=== PATIENT | female | born 1990 | race Two or more races ===

== ENCOUNTER 2022-12-21 15:47 | Emergency (ER) | payer OTHER ==
[~2022-12-21] VITALS: Ht 154.9 cm; Wt 47.2 kg
[2022-12-21] MEDS ORDERED: PRENATAL + DHA1 EAC1 (16:27)
[2022-12-21 17:21] LABS: HEMOGLOBIN 12.7 g/dL (12.0-15.00); MEAN CELL VOLUME 82.4 fL (80.00-100.00); MEAN CORPUSCULAR HEMOGLOBIN 26.8 pg (27.00-32.0); MEAN CORPUSCULAR HGB CONC 32.5 g/dl (32.0-36.0); PLATELET COUNT 350 K/uL (150-450); RED BLOOD COUNT 4.73 M/uL (4.00-6.00); RED CELL DISTRIBUTION WIDTH 13.8 % (11.5-14.5)
[2022-12-21 17:42] LABS: URINE APPEARANCE Turbid; URINE BILIRRUBIN Negative (NEGATIVE); URINE COLOR Yellow; URINE GLUCOSE Negative (NEGATIVE); URINE LEUKOCYTE Moderate; URINE NITRATE Negative; URINE PROTEIN Negative (NEGATIVE)
[2022-12-21 17:43] LABS: URINE BACTERIA 2529.8 uL (0.0-1933); URINE EPITHELIAL CELLS 28.9 uL (0.0-38.8); URINE RBC 31.9 uL (0.0-20.8); URINE WBC 497.4 uL (0.0-23.2)
[2022-12-21 17:54] LABS: URINE BLOOD TRACES
[2022-12-21 18:02] LABS: CALCIUM 9.5 mg/dL (8.5-10.1); CREATININE SERUM 0.64 mg/dL (0.55-1.02); GFR 107.54; POTASSIUM 3.13 mEq/L (3.5-5.1)
== END 2022-12-21 21:00 | disposition home or self-care (01) ==
LOC: ER 15:47
PROVIDERS: Emergency Medicine
DX: R11.10 Vomiting, unspecified (principal); Z33.1 Pregnant state, incidental

== ENCOUNTER 2023-01-17 14:23 | Outpatient (CLI) | payer OTHER ==
[~2023-01-17 14:23] MED LIST: PRENATAL + DHA1 EAC1
== END 2023-01-17 14:27 | disposition home or self-care (01) ==
LOC: PRENATAL 14:23
PROVIDERS: ATTEND Obstetrics & Gynecology Maternal & Fetal Medicine
DX: O36.80X0 Pregnancy with inconclusive fetal viability, not applicable or unspecified (principal); Z36.82 Encounter for antenatal screening for nuchal translucency; Z36.9 Encounter for antenatal screening, unspecified; Z14.8 Genetic carrier of other disease; O99.280 Endocrine, nutritional and metabolic diseases complicating pregnancy, unspecified trimester; O34.10 Maternal care for benign tumor of corpus uteri, unspecified trimester; Z3A.12 12 weeks gestation of pregnancy

== ENCOUNTER 2023-03-03 08:20 | Outpatient (CLI) | payer OTHER | END 2023-03-03 08:22 | disposition home or self-care (01) | LOC: PRENATAL 08:20 | PROVIDERS: ATTEND Obstetrics & Gynecology Maternal & Fetal Medicine | DX: O35.3XX0 Maternal care for (suspected) damage to fetus from viral disease in mother, not applicable or unspecified (principal); O44.00 Complete placenta previa NOS or without hemorrhage, unspecified trimester; O99.280 Endocrine, nutritional and metabolic diseases complicating pregnancy, unspecified trimester; O34.10 Maternal care for benign tumor of corpus uteri, unspecified trimester; Z3A.19 19 weeks gestation of pregnancy ==

== ENCOUNTER 2023-05-09 19:23 | Emergency (ER) | payer OTHER ==
[~2023-05-09] VITALS: Ht 154.9 cm; Wt 64.0 kg
[2023-05-09] MEDS ORDERED: RINGERS SOLUTION,LACTATED 1,000 ML IV ONE (20:30)
[2023-05-09] MEDS ORDERED: METOCLOPRAMIDE HCL 5 MG/ML VIAL IM ONE (20:30)
[2023-05-09 21:23] LABS: PH,URINE 5.5 (5.0-8.0); URINE APPEARANCE Cloudy; URINE BACTERIA 6648.7 uL (0.0-1933); URINE BILIRRUBIN Negative (NEGATIVE); URINE BLOOD Negative; URINE COLOR Yellow; URINE EPITHELIAL CELLS 67.5 uL (0.0-38.8); URINE GLUCOSE Negative (NEGATIVE); URINE LEUKOCYTE Negative; URINE NITRATE Negative; URINE PROTEIN 30 (NEGATIVE); URINE RBC 19.9 uL (0.0-20.8); URINE UROBILINOGEN 0.2 E.U./dl; URINE WBC 98.1 uL (0.0-23.2)
[2023-05-09 21:27] LABS: HEMATOCRIT 38.8 % (36.0-45.00); HEMOGLOBIN 12.7 g/dL (12.0-15.00); MEAN CELL VOLUME 82.1 fL (80.00-100.00); MEAN CORPUSCULAR HEMOGLOBIN 26.8 pg (27.00-32.0); MEAN CORPUSCULAR HGB CONC 32.6 g/dl (32.0-36.0); PLATELET COUNT 242 K/uL (150-450); RED BLOOD COUNT 4.73 M/uL (4.00-6.00); RED CELL DISTRIBUTION WIDTH 13.7 % (11.5-14.5)
[2023-05-09 21:57] LABS: CALCIUM 9.3 mg/dL (8.5-10.1); CREATININE SERUM 0.58 mg/dL (0.55-1.02); GFR 120.47; POTASSIUM 3.33 mEq/L (3.5-5.1)
[2023-05-09] MEDS ORDERED: ONDANSETRON HCL 2 MG/ML VIAL IV ONE (23:30)
[2023-05-09] MEDS ORDERED: FAMOTIDINE/PF 20 MG/2 ML VIAL IV PUSH ONE (23:30)
[2023-05-09 23:55] LABS: HEMATOCRIT 38.2 % (36.0-45.00); HEMOGLOBIN 12.6 g/dL (12.0-15.00); MEAN CELL VOLUME 82.3 fL (80.00-100.00); MEAN CORPUSCULAR HEMOGLOBIN 27.2 pg (27.00-32.0); MEAN CORPUSCULAR HGB CONC 33.1 g/dl (32.0-36.0); PLATELET COUNT 234 K/uL (150-450); RED BLOOD COUNT 4.64 M/uL (4.00-6.00); RED CELL DISTRIBUTION WIDTH 14.1 % (11.5-14.5)
[2023-05-10] MEDS ORDERED: CEFAZOLIN SODIUM 1,000 MG VIAL IV STA (01:10)
== END 2023-05-10 02:33 | disposition home or self-care (01) ==
LOC: ER 19:23
PROVIDERS: General Practice
DX: O99.613 Diseases of the digestive system complicating pregnancy, third trimester (principal); K52.89 Other specified noninfective gastroenteritis and colitis; Z88.6 Allergy status to analgesic agent; Z91.013 Allergy to seafood; K92.89 Other specified diseases of the digestive system; Z3A.29 29 weeks gestation of pregnancy; Z20.822 Contact with and (suspected) exposure to COVID-19

== ENCOUNTER → 2023-05-11 | Emergency (ER) | payer OTHER ==
[~2023-05-11] VITALS: Ht 154.9 cm; Wt 64.0 kg
[~2023-05-11] MED LIST changes: +0.9 % SODIUM CHLORIDE 1,000 ML IV STA; +CEFTRIAXONE SODIUM 1,000 MG VIAL IV ONE; +ONDANSETRON HCL 2 MG/ML VIAL IV ONE; +ONDANSETRON HCL 2 MG/ML VIAL IV STA
[2023-05-11 11:11] LABS: HEMATOCRIT 34.9 % (36.0-45.00); HEMOGLOBIN 11.6 g/dL (12.0-15.00); MEAN CELL VOLUME 81.6 fL (80.00-100.00); MEAN CORPUSCULAR HEMOGLOBIN 27.2 pg (27.00-32.0); MEAN CORPUSCULAR HGB CONC 33.3 g/dl (32.0-36.0); PLATELET COUNT 256 K/uL (150-450); RED BLOOD COUNT 4.28 M/uL (4.00-6.00); RED CELL DISTRIBUTION WIDTH 13.6 % (11.5-14.5)
[2023-05-11 11:38] LABS: PH,URINE 5.5 (5.0-8.0); URINE APPEARANCE Cloudy; URINE BILIRRUBIN Small (NEGATIVE); URINE BLOOD Trace; URINE COLOR Dark Yellow; URINE GLUCOSE Negative (NEGATIVE); URINE LEUKOCYTE Small; URINE NITRATE Negative; URINE PROTEIN 30 (NEGATIVE)
[2023-05-11 11:42] LABS: URINE BACTERIA 2136.9 uL (0.0-1933); URINE EPITHELIAL CELLS 103.1 uL (0.0-38.8); URINE RBC 20.1 uL (0.0-20.8); URINE WBC 172.3 uL (0.0-23.2)
[2023-05-11 11:53] LABS: CALCIUM 8.9 mg/dL (8.5-10.1); CREATININE SERUM 0.53 mg/dL (0.55-1.02); GFR 133.68; POTASSIUM 3.19 mEq/L (3.5-5.1)
== END | disposition home or self-care (01) ==
LOC: ER 10:01
PROVIDERS: General Practice
DX: O23.43 Unspecified infection of urinary tract in pregnancy, third trimester (principal); N39.0 Urinary tract infection, site not specified; O21.0 Mild hyperemesis gravidarum; Z3A.28 28 weeks gestation of pregnancy; Z91.013 Allergy to seafood

== ENCOUNTER 2023-05-31 12:08 | Outpatient (CLI) | payer OTHER ==
[~2023-05-31 12:08] MED LIST changes: -0.9 % SODIUM CHLORIDE 1,000 ML IV STA; -CEFTRIAXONE SODIUM 1,000 MG VIAL IV ONE; -ONDANSETRON HCL 2 MG/ML VIAL IV ONE; -ONDANSETRON HCL 2 MG/ML VIAL IV STA
== END 2023-05-31 12:09 | disposition home or self-care (01) ==
LOC: PRENATAL 12:08
PROVIDERS: ATTEND Obstetrics & Gynecology Maternal & Fetal Medicine
DX: O26.849 Uterine size-date discrepancy, unspecified trimester (principal); O36.8199 Decreased fetal movements, unspecified trimester, other fetus; O34.10 Maternal care for benign tumor of corpus uteri, unspecified trimester; Z3A.32 32 weeks gestation of pregnancy

== ENCOUNTER 2023-06-29 13:10 | Outpatient (CLI) | payer OTHER ==
[~2023-06-29 13:10] MED LIST changes: +HUMULIN N100 UNIT/2 SUBCUTANEO; +INSULIN SYRING1 EA29 SUBCUTANEO
== END 2023-06-29 13:11 | disposition home or self-care (01) ==
LOC: PRENATAL 13:10
PROVIDERS: ATTEND Obstetrics & Gynecology Maternal & Fetal Medicine
DX: O26.849 Uterine size-date discrepancy, unspecified trimester (principal); O36.8199 Decreased fetal movements, unspecified trimester, other fetus; O99.280 Endocrine, nutritional and metabolic diseases complicating pregnancy, unspecified trimester; O34.10 Maternal care for benign tumor of corpus uteri, unspecified trimester; Z3A.36 36 weeks gestation of pregnancy